=== PATIENT | male | born 1995 | race Caucasian/White ===

== ENCOUNTER 2020-09-09 23:53 | Emergency (ER) | payer OTHER ==
[~2020-09-09] VITALS: Ht 167.6 cm; Wt 79.8 kg
[2020-09-10 00:10] VITALS: BP 152/96
--- NOTE | 2020-09-10 00:10 | NUR ---
PT TAKEN TO BED 5 WITH STEADY GAIT.
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
--- NOTE | 2020-09-10 00:43 | NUR ---
PT PROVIDED URINAL AT THIS TIME.
--- NOTE | 2020-09-10 01:45 | NUR ---
PT SLEEPING IN BED, LOCKED AND IN LOWEST POSITION ,HOB ELEVATED, SIDE RAIL X2 FOR PT SAFETY. VISIBLE RISE AND FALL OF CHEST . NO ACUTE DISTRESS NOTED AT THIS TIME.
--- NOTE | 2020-09-10 02:41 | NUR ---
PT SLEEPING IN BED, LOCKED AND IN LOWEST POSITION ,HOB ELEVATED, SIDE RAIL X2. AUDIBLE SNORING HEARD. RR EVEN AND UNLABORED. VSS. NO ACUTE DISTRESS NOTED.
--- NOTE | 2020-09-10 03:43 | NUR ---
PT SLEEPING IN BED, LOCKED AND IN LOWEST POSITION, VISIBLE RISE AND FALL OF CHEST. RR EVEN AND UNLABORED. NO ACUTE DISTRESS NOTED.
--- NOTE | 2020-09-10 04:31 | NUR ---
PT SLEEPING IN BED , VISIBLE RISE AND FALL OF CHEST. VSS. NO ACUTE DISTRESS.
[2020-09-10 04:43] VITALS: BP 130/85
--- NOTE | 2020-09-10 05:00 | NUR ---
PT AMBULATED TO RESTROOM STEADY GAIT OBSERVED.
--- NOTE | 2020-09-10 05:15 | NUR ---
PT SEATED ON EDGE ON BED. DISCHARGE PENDING.
--- NOTE | 2020-09-10 05:30 | NUR ---
Patient discharged with v/s stable. Written and verbal after care instructions given and explained. Patient verbalized understanding. Ambulatory with steady gait. All questions addressed prior to discharge. Advised to follow up with PMD.
== END 2020-09-10 05:30 | disposition home or self-care (01) ==
LOC: MED 23:53
DX: F10.129 Alcohol abuse with intoxication, unspecified (principal)
CPT/HCPCS: 99281; 99283